=== PATIENT | male | born 1930 | race African-American/Black ===

== ENCOUNTER 2016-06-13 06:38 | Day surgery (SDC) | payer OTHER, BC ==
[2016-06-13 07:18] VITALS: BMI 24.3
[2016-06-13] MEDS ORDERED: LIDOCAINE HCL/PF 1% SDV 5ML VIAL ONE (07:25)
[2016-06-13] MEDS ORDERED: PROPOFOL 20 ML ONE ×3 (07:25)
[2016-06-13 08:19] VITALS: TEMP 97.4
[2016-06-13 08:28] VITALS: PULSE 65
[2016-06-13 09:17] VITALS: BP 132/74
--- NOTE | 2016-06-14 10:11 | PATH ---
Surgical Pathology Report Patient Name: BARBIE BENAVIDEZ [facility]. Rec. #: [id number] /Age/Gender: 1930 (Age: 86) / M Account: [id number] Location: U-ENDOSCOPY Taken: 06/13/2016 Received: 06/13/2016 Reported: 06/14/2016 Physicians: Flaco Foster M.D. Specimen(s) Received A: SIGMOID COLON POLYP B: RECTAL POLYP BIOPSY Clinical History History of colon polyps Colon polyps Final Diagnosis A. COLON, SIGMOID, BIOPSY: TUBULAR ADENOMA. B. RECTUM, BIOPSY: HYPERPLASTIC POLYP. Electronically Signed Dk Lange M.D. Gross Description A. Received in formalin, labeled "sigmoid colon polyp" is a reyes, irregular portion of soft tissue measuring 0.7 cm. in greatest dimension. The specimen is submitted in toto in one cassette. B. Received in formalin, labeled "rectal polyp biopsy" is a reyes, irregular portion of soft tissue measuring 0.3 cm. in greatest dimension. The specimen is submitted in toto in one cassette. 06/13/201606/13/2016
== END 2016-06-13 09:17 | disposition home or self-care (01) ==
LOC: JASU-ENDO 06:38
PROVIDERS: ATTEND Internal Medicine Gastroenterology
PROC: 0DBP8ZX Excision of Rectum, Via Natural or Artificial Opening Endoscopic, Diagnostic (ICD-10-PCS; 2016-06-13)
PROC: 0DBN8ZX Excision of Sigmoid Colon, Via Natural or Artificial Opening Endoscopic, Diagnostic (ICD-10-PCS; principal; 2016-06-13 07:30)
DX: D12.5 Benign neoplasm of sigmoid colon (principal); K62.1 Rectal polyp; K64.8 Other hemorrhoids; K57.30 Diverticulosis of large intestine without perforation or abscess without bleeding; K62.4 Stenosis of anus and rectum; K59.00 Constipation, unspecified
CPT/HCPCS: 88305-TC

== ENCOUNTER 2019-12-27 18:46 | Inpatient (IN) | payer OTHER, BC ==
[2019-12-27 18:56] VITALS: BMI 20.4
--- NOTE | 2019-12-27 19:30 | PDOC ---
History of Present Illness - General Chief Complaint: Pain Stated Complaint: STOMACH PAIN Time Seen by Provider: 12/27/19 19:18 - History of Present Illness Initial Comments: 12/27/19 19:31 89 year old man with a history of COPD, gastroparesis who presents with several weeks of chest pain radiating into the throat worse with lying back. He can't describe the pain but states he feels most consistent with acid. He endorses some shortness of breath but denies any other symptoms. Patient took 2 tylenols at 4pm ROS GENERAL/CONSTITUTIONAL: No fever or chills. No weakness. HEAD, EYES, EARS, NOSE AND THROAT: No change in vision. No ear pain or discharge. No sore throat. CARDIOVASCULAR: N+ chest pain or shortness of breath RESPIRATORY: No cough, wheezing, or hemoptysis. GASTROINTESTINAL: No nausea, vomiting, diarrhea or constipation. GENITOURINARY: No dysuria, frequency, or change in urination. MUSCULOSKELETAL: No joint or muscle swelling or pain. No neck or back pain. SKIN: No rash NEUROLOGIC: No headache, vertigo, loss of consciousness, or change in strength/sensation. ENDOCRINE: No increased thirst. No abnormal weight change HEMATOLOGIC/LYMPHATIC: No anemia, easy bleeding, or history of blood clots. ALLERGIC/IMMUNOLOGIC: No hives or skin allergy. PE GENERAL: Awake, alert, and fully oriented, in no acute distress HEAD: No signs of trauma, normocephalic, atraumatic EYES: EOMI, sclera anicteric, conjunctiva clear ENT: oropharynx clear without exudates. Moist mucosa NECK: Normal ROM, supple LUNGS: No distress, speaks full sentences, crackles at base R> L HEART: Regular rate and rhythm, normal S1 and S2, no murmurs, rubs or gallops, peripheral pulses normal and equal bilaterally. ABDOMEN: Soft, nontender. No guarding, no rebound. No masses EXTREMITIES : Normal inspection, Normal range of motion, no edema. No clubbing or cyanosis. NEUROLOGICAL: Cranial nerves II through XII grossly intact. Normal speech, normal gait, no focal sensorimotor deficits SKIN: Warm, Dry, normal turgor, no rashes or lesions noted Assessment and Plan 89 year old man with a history of COPD, gastroparesis who presents with several weeks of chest pain radiating into the throat worse with lying back. Consider acs vs GERD vs msk - cbc, cmp, trop, ekg, cxr - pepcid maalox labs with elevated trop to 0.15 EKG: nsr at 90bpm, ST depression in v4, v5, v6 Will dose ASA patient reports increasing pain in the jaw, morphine and repeat ekg repeat EKG unchanged Plan for admission Carmen Mann, PGY3 Emergency Medicine Past History - Medical History Allergies/Adverse Reactions: Allergies Allergy/AdvReac Type Severity Reaction Status Date / Time No Known Drug Allergies Allergy Verified 12/27/19 20:04 Home Medications: Ambulatory Orders Tamsulosin HCl [Flomax -] 0.4 mg PO DAILY #0 cap.er.24h 12/06/11 Albuterol Sulfate [Proair Hfa] 8.5 gm IH PRN 12/27/19 Gabapentin [Neurontin] 600 mg PO BID 12/27/19 Umeclidinium Brm/Vilanterol Tr [Anoro Ellipta 62.5-25 Mcg INH] 1 each IH DAILY 12/27/19 Anemia: No Asthma: No Cancer: No Cardiac Disorders: No CVA: No COPD: Yes (emphysema) CHF: No Dementia: No Diabetes: No GI Disorders: Yes (polyps, GI paralysis) Disorders: Yes (hesitancy, BPH) HTN: No Hypercholesterolemia: No Liver Disease: No Seizures: No Thyroid Disease: No Other medical history: Arthritis - Surgical History Abdominal Surgery: No Appendectomy: No Cardiac Surgery: No Cholecystectomy: No Lung Surgery: No Neurologic Surgery: Yes (NECK FUSION) Orthopedic Surgery: No - Psycho-Social/Smoking History Smoking History: Former smoker Have you smoked in the past 12 months: No If you are a former smoker, when did you quit?: 30 y Information on smoking cessation initiated: No - Substance Abuse Hx (Audit-C & DAST Scrn) How often the patient has a drink containing alcohol: Never Score: In Men: 4 or > Positive; In Women: 3 or > Positive: 0 Screen Result (Pos requires Nsg. Audit-10AR): Negative In the last yr the pt used illegal drug/Rx for NonMed reason: No Score: Yes response is considered Positive: 0 Screen Result (Positive result requires Nsg. DAST-10): Negative *Physical Exam - Vital Signs Last Vital Signs Temp Pulse Resp BP Pulse Ox 98.5 F 97 H 19 152/73 99 12/27/19 18:51 12/27/19 18:51 12/27/19 18:51 12/27/19 18:51 12/27/19 18:51 ED Treatment Course - LABORATORY CBC & Chemistry Diagram: 12/29/19 06:42 12/29/19 06:42 Discharge - Discharge Information Problems reviewed: Yes Clinical Impression/Diagnosis: NSTEMI (non-ST elevated myocardial infarction) Disposition: TRANSFER ACUTE CARE/OTHER HOSP - Follow up/Referral - Patient Discharge Instructions - Post Discharge Activity
[2019-12-27] MEDS ORDERED: FAMOTIDINE 20 MG/50 ML IVPB 20 MG/50 ML MG IVPB ONE ×2 (19:31→19:36)
[2019-12-27] MEDS ORDERED: MAG HYDROX/AL HYDROX/SIMETH 30 ML UNIT-DOSE CUP PO ONE (19:31)
[2019-12-27] MEDS ORDERED: MAG HYDROX/AL HYDROX/SIMETH 30 ML UNIT-DOSE CUP ONE (19:36)
[2019-12-27 20:22] LABS: BASO % 0.3 % (0-2.0); EOS % 0.6 % (0-4.5); HEMATOCRIT 37.7 % (35.4-49); HEMOGLOBIN 12.4 GM/dL (11.7-16.9); LYMPH % 12.6 % (8-40); MCH 31.3 pg (25.7-33.7); MEAN CELL VOLUME 94.8 fl (80-96); MEAN PLT VOLUME 7.8 fl (7.5-11.1); MONO % 7.4 % (3.8-10.2); NEUT % 79.1 % (42.8-82.8); PLATELET COUNT 191 K/MM3 (134-434); RBC 3.98 M/mm3 (4.00-5.60); RDW 13.6 % (11.9-15.9)
[2019-12-27 20:48] LABS: ALBUMIN 3.4 g/dl (3.4-5.0); BILIRUBIN,TOTAL 0.5 mg/dL (0.2-1); BLOOD UREA NITROGEN 9.5 mg/dL (7-18); CALCIUM 8.9 mg/dL (8.5-10.1); CREATININE 1.1 mg/dL (0.55-1.3); POTASSIUM 3.7 mmol/L (3.5-5.1)
[2019-12-27] MEDS ORDERED: ACETAMINOPHEN 1000 MG/100 ML VIAL (NON FORMULARY) IVPB ONE (21:00)
[2019-12-27] MEDS ORDERED: ASPIRIN 81 MG CHEWABLE TABLETS PO ONE (21:02)
[2019-12-27] MEDS ORDERED: METOPROLOL TARTRATE 25 MG TABLET (FP) PO ONE (21:02)
[2019-12-27] MEDS ORDERED: morphine CARPU-JECT 4 MG/1 ML DISP.SYRIN IVPUSH ONE ×2 (21:03→23:30)
[2019-12-27] MEDS ORDERED: CLOPIDOGREL BISULFATE 300 MG TABLET PO ONE (21:03)
[2019-12-27] MEDS ORDERED: ROSUVASTATIN CA 20 MG TABLET (FP) PO ONE (21:03)
[2019-12-27] MEDS ORDERED: CLOPIDOGREL BISULFATE 300 MG TABLET ONE (21:12)
[2019-12-27] MEDS ORDERED: METOPROLOL TARTRATE 25 MG TABLET (FP) ONE (21:12)
[2019-12-27] MEDS ORDERED: ASPIRIN 81 MG CHEWABLE TABLETS ONE (21:12)
--- NOTE | 2019-12-27 21:12 | PN ---
Teaching Attending Note Name of Resident: Sudarshan Arizmendi ATTENDING PHYSICIAN STATEMENT I saw and evaluated the patient. I reviewed the resident's note and discussed the case with the resident. I agree with the resident's findings and plan as documented. SUBJECTIVE: Patient is an 89 year old man with a PMH of COPD, BPH, COVID-19 infection (July 2019), Lumbar spinal stenosis, Spondylosis with myelopathy and Gastroparesis who presents to the ER with several weeks of worsening chest pain. As per patient, his chest pain radiates to his throat, is exacerbated when he is laying flat on his back, and notes associated shortness of breath. Patient states his pain is similar to acid reflux symptoms. Patient reports taking 2 Tylenols at 4 pm today . Has lost over 10 lbs since his COVID-19 infection - has had poor oral intake due to loss of taste sensation. Patient denies abdominal pain, headache, palpitations, dizziness, fever, chills, nausea, vomiting, diarrhea, constipation, dysuria, frequency, urgency, melena, hematochezia or hematuria. Denies alcohol, tobacco or illicit drug use. No sick contacts or recent travels. Family history is unremarkable. OBJECTIVE: Alert Vital Signs Period Temp Pulse Resp BP Sys/Pulido Pulse Ox Last 24 Hr 98.5 F 85-97 19-20 152-166/73-93 99-100 HEENT: No Jaundice, eye redness or discharge, PERRLA, EOMI. Normocephalic, atraumatic. External ears are normal and hearing is grossly intact. No nasal discharge. Neck: Supple, nontender. No palpable adenopathy or thyromegaly. No JVD Chest: Good effort. Clear to auscultation and percussion. Heart: Regular. No S3, rub or murmur Abdomen: Not distended, soft, nontender and no HSM. No rebound or guarding. Normal bowel sounds. Ext: Peripheral pulses intact. No leg edema. Skin: Warm and dry. No petechiae, rash or ecchymosis. Neuro: Alert. Oriented x3. CN 2-12 grossly intact. Sensation grossly intact in all four extremities and DTR are symmetric. Psych: Appropriate mood and affect. Good insight. Home Medications Medication Instructions Recorded Tamsulosin HCl [Flomax -] 0.4 mg PO DAILY #0 cap.er.24h 12/06/11 Albuterol Sulfate [Proair Hfa] 8.5 gm IH PRN 12/27/19 Gabapentin [Neurontin] 600 mg PO BID 12/27/19 Umeclidinium Brm/Vilanterol Tr 1 each IH DAILY 12/27/19 [Anoro Ellipta 62.5-25 Mcg INH] Abnormal Lab Results 12/27/19 12/27/19 19:49 19:49 RBC 3.98 L ALT 12 L Troponin I 0.15 H Current Medications Generic Name Dose Route Start Last Admin Trade Name Nabil PRN Reason Stop Dose Admin Enoxaparin Sodium 50 mg 12/27/19 21:15 12/27/19 21:21 Lovenox - SQ 50 mg ONCE LIZ Administration ASSESSMENT AND PLAN: 1. Chest pain/?NSTEMI - CXR shows cardiomegaly, bibasilar atelectasis most marked in the RLL and hilar prominence. First EKG showed NSR at 90/minute, LVH and QTc [address] depression in ?I, II, V4-V6. Changed compared to prior EKG from 2011. Repeat EKG shows ST depression only in V4,V5. Initial troponin is 0.15. ER staff prescribed full dose Lovenox, Plavix, Aspirin 324 mg, Metorpr olol, IV Morphine, Tylenol, Mylanta, Pepcid and Crestor for the patient. Will admit to telemetry, trend troponin, repeat EKG, get ECHO, TSH, carotid doppler, fasting lipids, brain MRI, do speech and swallow evaluation, neurochecks and implement fall/aspiration/seizure precautions. Consult Cardiology. Viral testing for COVID-19 ordered and patient placed on airborne, droplet and contact isolation. Will continue comprehensive care for all of patients comorbid conditions including Duoneb for COPD and Flomax for BPH. 2. Hypertension Will restart suitable outpatient antihypertensive drugs when clinically appropriate. Subsequently, will revise regimen to ensure [id number] excellent BP control. Patient counseled on the injurious effects of uncontrolled hypertension. Nonpharmacologic measures to control hypertension like weight loss, salt restriction and exercise stressed. Importance of adherence to treatment regimen and attainment of normotension emphasized. 3. DVT prophylaxis - On full dose Lovenox for NSTEMI. 4. Advance directives - Full code
[2019-12-27] MEDS ORDERED: ENOXAPARIN NA (PORCINE) 60 MG/0.6 ML DISP.SYRIN SQ ONE (21:13)
[2019-12-27] MEDS ORDERED: morphine SULFATE 4 MG/ML VIAL ONE (21:14)
[2019-12-27] MEDS ORDERED: ENOXAPARIN NA (PORCINE) 60 MG/0.6 ML DISP.SYRIN SQ SCH (21:15)
--- NOTE | 2019-12-27 22:53 | PDOC ---
Documentation entered by Ritu Maria SCRIBE, acting as scribe for Shreya Jurado MD. Shreya Jurado MD: This documentation has been prepared by the jinnyibeCrow Sydney, SCRIBE, under my direction and personally reviewed by me in its entirety. I confirm that the documentation accurately reflects all work, treatment, procedures, and medical decision making performed by me. Attending Attestation - Resident Resident Name: Carmen Mann - ED Attending Attestation I have performed the following: I have examined & evaluated the patient, The case was reviewed & discussed with the resident, I agree w/resident's findings & plan, Exceptions are as noted - HPI HPI: 12/27/19 20:31 Patient is a 89 male with a significant past medical history of COPD, gastroparesis who presents to the ED with several weeks of worsening chest pain. As per patient, his chest pain radiates to his throat, is exacerbated when he is laying flat on his back, and notes associated shortness of breath. Patient states his pain is similar to acid reflux symptoms. Patient reports taking 2 Tylenols at 4 pm today. Denies headache, fever, chills, nausea, vomiting, diarrhea, or urinary changes. Allergies: NKDA PCP: Dr. Singh - Physicial Exam PE: 12/27/19 22:41 Agree with resident exam HEENT normal skin normal Normal heart and lungs; pt has a 3rd nipple on the right side of chest Abd soft NT ND no flank pain normal neuro exam no ext edema - Medical Decision Making 12/27/19 21:08 Pt has a positive trop with an EKG that shows new LVH with strain and he will be admitted to tele and anticoagulated, etc Cards will follow with him tomorrow. Heart Score/ECG Review - ECG Intrepretation Rhythm: Regular Rhythm - [place]: Left [place] Deviation - P and [place] Prominent R with upright T in V1 (true posterior TN): No - QRS Poor R Wave Progression: No Q Wave Present: No - ST and T Early Repolarization: No Non Specific ST-T Wave changes: Yes ST Depression Suggest: Ischemia Flattened T Waves: No Prolonged Q-T Interval: No - ECG Impressions Normal ECG: Yes Non-specific ST Elevation: No Ischemic Changes: Yes (LATERAL ASPECT) Bradycardia: No Torsades melanie Pointes: No WPW: No Discharge - Discharge Information Problems reviewed: Yes Clinical Impression/Diagnosis: NSTEMI (non-ST elevated myocardial infarction) - Follow up/Referral - Patient Discharge Instructions - Post Discharge Activity
[2019-12-27] MEDS ORDERED: MORPHINE SULFATE 2 MG/ML VIAL ONE (23:42)
[2019-12-28] MEDS ORDERED: ALBUTEROL SO4 HFA INHALER IH SCH (01:00)
--- NOTE | 2019-12-28 01:09 | HP ---
CHIEF COMPLAINT: Chest pain radiating to the jaw for several weeks gradually becoming more frequent and worse PCP: Dr. Lorena Singh HISTORY OF PRESENT ILLNESS: 89 year old male patient with past medical history that includes COPD, gastroparesis diagnosed 3 years ago per patient, COVID in July, BPH, and N europathy, who presented to the ED with chest pain radiating to the jaw for several weeks. It has been gradually becoming more frequent and is now constant pain both during the day and at night. The patient reports that exertion does not bring on the pain or make it worse. He reports the symptoms feel the same as when he gets acid reflux. He tried taking 2 Tylenol with minimal relief. The pain is worse when he lies down. He also has some shortness of breath which he attributes to his COPD. The patient also has a mild headache. He has lost at least 10 pounds since he had COVID in July, but he attributes it to lack of appetite due to loss of taste, which he thinks the COVID caused. ER course was notable for: (1) ECG (2) Troponins (3) PAST MEDICAL HISTORY: COPD, gastroparesis for 3 years, COVID in July, BPH, Neuropathy PAST SURGICAL HISTORY: Left carpal tunnel, lumbar spine surgery, C4 neck surgery, right carpal tunnel surgery, leg vein stripping surgery Social History: Smoking: denies Alcohol: denies Drugs: denies Allergies No Known Drug Allergies Allergy (Verified 12/27/19 20:04) HOME MEDICATIONS: Home Medications Medication Instructions Recorded Tamsulosin HCl [Flomax -] 0.4 mg PO DAILY #0 cap.er.24h 12/06/11 Albuterol Sulfate [Proair Hfa] 8.5 gm IH PRN 12/27/19 Gabapentin [Neurontin] 600 mg PO BID 12/27/19 Umeclidinium Brm/Vilanterol Tr 1 each IH DAILY 12/27/19 [Anoro Ellipta 62.5-25 Mcg INH] REVIEW OF SYSTEMS CONSTITUTIONAL: loss of appetite Absent: fever, chills CARDIOVASCULAR: chest pain, jaw pain Absent: RESPIRATORY: shortness of breath Absent: GASTROINTESTINAL: Absent: nausea, vomiting, diarrhea, constipation GENITOURINARY: Absent: urinary changes ENDOCRINE: weight loss Absent: NEUROLOGIC: headache Absent: PHYSICAL EXAMINATION Vital Signs - 24 hr 12/27/19 12/27/19 12/27/19 18:51 21:04 21:19 Temperature 98.5 F Pulse Rate 97 H Pulse Rate [ 85 Left Radial] Respiratory 19 20 Rate Blood Pressure 152/73 Blood Pressure 166/93 [Right Arm] O2 Sat by Pulse 99 100 100 Oximetry (%) 12/27/19 23:45 Temperature Pulse Rate Pulse Rate [ 78 Left Radial] Respiratory 18 Rate Blood Pressure Blood Pressure 159/84 [Right Arm] O2 Sat by Pulse 100 Oximetry (%) GENERAL: Awake, alert, and fully oriented, in no acute distress. HEAD: Normal with no signs of trauma. EYES: Extraocular movements intact. No lid lag. EARS, NOSE, THROAT: Ears normal, nares patent, oropharynx clear without exudates. Moist mucous membranes. NECK: Normal range of motion, supple without lymphadenopathy, JVD, or masses. LUNGS: Breath sounds equal, clear to auscultation bilaterally. No wheezes, and no crackles. No accessory muscle use. HEART: Regular rate and rhythm, normal S1 and S2 without murmur, rub or gallop. ABDOMEN: Soft, nontender, not distended, normoactive bowel sounds, no guarding, no rebound, no masses. MUSCULOSKELETAL: Normal range of motion at all joints. No bony deformities or tenderness. UPPER EXTREMITIES: 2+ pulses, warm, well-perfused. No cyanosis. No clubbing. No peripheral edema. LOWER EXTREMITIES: 2+ pulses, warm, well-perfused. No calf tenderness. No peripheral edema. NEUROLOGICAL: Normal speech. Normal gait. PSYCHIATRIC: Cooperative. Good eye contact. Appropriate mood and affect. SKIN: Warm, dry, normal turgor, no rashes or lesions noted, normal capillary refill. Laboratory Results - last 24 hr 12/27/19 12/27/19 12/27/19 19:49 19:49 22:55 WBC 7.0 RBC 3.98 L Hgb 12.4 Hct 37.7 MCV 94.8 MCH 31.3 MCHC 33.0 RDW 13.6 Plt Count 191 MPV 7.8 Absolute Neuts (auto) 5.5 Neutrophils % 79.1 D Lymphocytes % 12.6 D Monocytes % 7.4 Eosinophils % 0.6 Basophils % 0.3 Nucleated RBC % 0 Sodium 140 Potassium 3.7 Chloride 102 Carbon Dioxide 30 Anion Gap 8 BUN 9.5 Creatinine 1.1 Est GFR (CKD-EPI)AfAm 69.59 Est GFR (CKD-EPI)NonAf 60.04 Random Glucose 92 Calcium 8.9 Total Bilirubin 0.5 AST 15 ALT 12 L Alkaline Phosphatase 50 Troponin I 0.15 H 1.04 H* Total Protein 7.0 Albumin 3.4 Lipase 133 ASSESSMENT/PLAN: 89 year old male patient with past medical history that includes COPD, gastroparesis diagnosed 3 years ago per patient, COVID in July, BPH, and Neuropathy, who presented to the ED with chest pain radiating to the jaw for several weeks. 1. NSTEMI - Troponins elevated - Chest pain radiating to the jaw - No ST elevations of ECG - The patient received aspirin, metoprolol, morphine, statin, lovenox - ECHO - Serial Troponins - Cardio consulted - ASA - Fasting lipid panel in morning (patient NPO) 2. BPH - Home med of Tamsulosin 3. COPD - Home med of Anoro Ellipta resumed. #FEN - Monitoring Electrolytes, NPO for fasting lipid panel in morning DVT PPx - Lovenox SQ Family Medical History Family History: Denies Other Family History: The patient says that he is unaware of what medical conditions are in his family's history. Visit type - Medication Review Med list reviewed for High Risk Meds patients 65 and older: Yes - Emergency Visit Emergency Visit: Yes ED Registration Date: 12/28/19 Care time: The patient presented to the Emergency Department on the above date and was hospitalized for further evaluation of their emergent condition. - New Patient This patient is new to me today: Yes Date on this admission: 12/28/19 - Critical Care Critical Care patient: No ATTENDING PHYSICIAN STATEMENT I saw and evaluated the patient. I reviewed the resident's note and discussed the case with the resident. I agree with the resident's findings and plan as documented. SUBJECTIVE: OBJECTIVE: ASSESSMENT AND PLAN:
[2019-12-28] MEDS ORDERED: ALBUTEROL SO4 HFA INHALER IH PRN (07:04)
[2019-12-28] MEDS ORDERED: TAMSULOSIN HCL 0.4 MG CAP ONE (08:42)
[2019-12-28] MEDS ORDERED: ASPIRIN COATED 81 MG TABLET.EC ONE (08:42)
[2019-12-28] MEDS ORDERED: GABAPENTIN 100 MG CAPSULE ONE (08:43)
[2019-12-28] MEDS ORDERED: ENOXAPARIN NA (PORCINE) 40 MG/0.4 ML DISP.SYRIN SQ ONE (08:43)
[2019-12-28] MEDS: TAMSULOSIN HCL 0.4 MG CAP PO SCH (09:47)
[2019-12-28] MEDS: ASPIRIN COATED 81 MG TABLET.EC PO SCH (09:47)
[2019-12-28] MEDS: GABAPENTIN 300 MG CAPSULE PO SCH ×2 (09:48→21:07)
[2019-12-28] MEDS ORDERED: ENOXAPARIN NA (PORCINE) 40 MG/0.4 ML DISP.SYRIN SQ SCH (10:00)
[2019-12-28] MEDS ORDERED: UMECLIDINIUM/VILANTEROL (ANORO) 62.5/25 MCG INHALER IH SCH (10:00)
--- NOTE | 2019-12-28 11:31 | CON.CARD ---
Consult Consult Specialty:: Cardiology Referred by:: Hospitalist Medicine Reason for Consultation:: [place]/NSTEMI - History of Present Illness Chief Complaint: Chest pain History of Present Illness: Patient is an 89 year old man with a PMH of COPD, BPH, COVID-19 infection (July 2019), Lumbar spinal stenosis, Spondylosis with myelopathy and Gastroparesis who presents to the ER with several weeks of worsening chest pain radiating to the jaw. His chest pain radiates to his throat, is exacerbated when he is laying flat on his back, and notes associated shortness of breath. Patient states his pain is similar to acid reflux symptoms. It has been gradually becoming more frequent and is now constant pain both during the day and at night. The patient reports that exertion does not bring on the pain or make it worse. Patient repor ts taking 2 Tylenols at 4 pm today. Has lost over 10 lbs since his COVID-19 infection - has had poor oral intake due to loss of taste sensation. Patient denies palpitations, near or true syncope, orthopnea, PND or LE edema. Evolving lateral TWI and + troponins noted, currently chest pain and dysnpnea free. Allergies: NKDA PCP: Dr. Singh - History Source History Provided By: Patient Limitations to Obtaining History: No Limitations - Alcohol/Substance Use Hx Alcohol Use: Yes (occas) - Smoking History Smoking history: Former smoker Have you smoked in the past 12 months: No If you are a former smoker, when did you quit?: 30 y Home Medications - Allergies Allergies/Adverse Reactions: Allergies Allergy/AdvReac Type Severity Reaction Status Date / Time No Known Drug Allergies Allergy Verified 12/27/19 20:04 - Home Medications Home Medications: Ambulatory Orders Tamsulosin HCl [Flomax -] 0.4 mg PO DAILY #0 cap.er.24h 12/06/11 Albuterol Sulfate [Proair Hfa] 8.5 gm IH PRN 12/27/19 Gabapentin [Neurontin] 600 mg PO BID 12/27/19 Umeclidinium Brm/Vilanterol Tr [Anoro Ellipta 62.5-25 Mcg INH] 1 each IH DAILY 12/27/19 Family Medical History Other Family History: The patient says that he is unaware of what medical conditions are in his family's history. Review of Systems - Review of Systems Cardiovascular: reports: Chest Pain Respiratory: reports: SOB Vital Signs: Vital Signs Temperature 97.4 F L 12/28/19 10:03 Pulse Rate 75 12/28/19 10:03 Respiratory Rate 18 12/28/19 10:03 Blood Pressure 140/77 12/28/19 10:03 O2 Sat by Pulse Oximetry (%) 98 12/28/19 10:03 Constitutional: Yes: No Distress, Calm, Thin Neck: Yes: Supple Respiratory: Yes: Regular, CTA Bilaterally Gastrointestinal: Yes: Normal Bowel Sounds, Soft Cardiovascular: Yes: Regular Rate and Rhythm JVD: No Carotid Bruit: No Heart Sounds: Yes: S1, S2 Edema: No - Other Data Labs, Other Data: CBC, BMP 12/27/19 19:49 12/27/19 19:49 Troponin, BNP 12/27/19 12/27/19 12/28/19 19:49 22:55 09:36 Troponin I 0.15 H 1.04 H* 5.35 H* Troponin, BNP 12/27/19 12/27/19 12/28/19 19:49 22:55 09:36 Troponin I 0.15 H 1.04 H* 5.35 H* NSR LVH with evolving lateral TWI Echo: Pending Ejection Fraction %: LVEF > or = 40 % Imaging - Results Chest X-ray: Report Reviewed ([place] MARIE) Problem List - Problems (1) NSTEMI (non-ST elevated myocardial infarction) Code(s): I21.4 - NON-ST ELEVATION (NSTEMI) MYOCARDIAL INFARCTION (2) Coronary artery disease Code(s): I25.10 - ATHSCL HEART DISEASE OF [place] CORONARY ARTERY W/O ANG PCTRS Qualifiers: Coronary Disease-Associated Artery/Lesion type: [place] artery [place] vs. transplanted heart: [place] heart Associated angina: with unstable angina Qualified Code(s): I25.110 - Atherosclerotic heart disease of [place] coronary artery with unstable angina pectoris (3) COPD (chronic obstructive pulmonary disease) Code(s): J44.9 - CHRONIC OBSTRUCTIVE PULMONARY DISEASE, UNSPECIFIED Qualifiers: COPD type: unspecified COPD Qualified Code(s): J44.9 - Chronic obstructive pulmonary disease, unspecified (4) BPH (benign prostatic hyperplasia) Code(s): N40.0 - BENIGN PROSTATIC HYPERPLASIA WITHOUT LOWER URINRY TRACT SYMP Qualifiers: Lower urinary tract symptom presence: symptoms absent Qualified Code(s): N40.0 - Benign prostatic hyperplasia without lower urinary tract symptoms Assessment/Plan Carotid US: 80-99% SANDEE stenosis 1. CAD with [place]/NSTEMI 2. COPD 3. BPH P:1. Cycle enzyme to document peak, check TSH, lipid panel Ha1c, echo to assess ventricular and valve fxn 2. ASA 81 qd, Plavix 75 qd, Lipitor 80 qd, Toprol XL 25 qd, Lovenox with uptitration as tolerated 3. 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 Joey Weems 4. Continue Cynthia Mack MDI, tolerating Toprol w/o bronchospasm 5. Thank you for consultative opportunity
[2019-12-28] MEDS ORDERED: metoPROLOL SUCCINATE 25 MG TAB.SR.24H (FP) ONE (11:42)
[2019-12-28] MEDS ORDERED: ENOXAPARIN NA (PORCINE) 80 MG/0.8 ML DISP.SYRIN SQ ONE (11:42)
[2019-12-28] MEDS ORDERED: CLOPIDOGREL BISULFATE 75 MG TABLET (FP) ONE (11:42)
[2019-12-28] MEDS: CLOPIDOGREL BISULFATE 75 MG TABLET (FP) PO SCH (11:47)
[2019-12-28] MEDS: ENOXAPARIN NA (PORCINE) 60 MG/0.6 ML DISP.SYRIN SQ SCH ×2 (11:47→21:07)
[2019-12-28] MEDS: metoPROLOL SUCCINATE 25 MG TAB.SR.24H (FP) PO SCH (11:47)
--- NOTE | 2019-12-28 15:18 | PN ---
Progress Note, Physician History of Present Illness: seen and examined at bedside with present. EKGs reviewed. No evidence of STEMI. Evolving T wave inversion on EKG from this AM. Troponin increased to 5.3 this AM. Symptom free at this time. Denies nausea vomiting fever chills chest pain or SOB at this time. States he has had symptoms for a couple of weeks but the intensity of the pain is what made him come in last night. ROS negative except as per above. - Current Medication List Current Medications: Active Medications Albuterol Sulfate (Ventolin Hfa Inhaler -) 2 puff IH Q4H PRN PRN Reason: WHEEZING Aspirin (Ecotrin -) 81 mg PO DAILY [facility] Last Admin: 12/28/19 09:47 Dose: 81 mg Documented by: Atorvastatin Calcium (Lipitor -) 80 mg PO HS [facility] Clopidogrel Bisulfate (Plavix -) 75 mg PO DAILY [facility] Last Admin: 12/28/19 11:47 Dose: 75 mg Documented by: Enoxaparin Sodium (Lovenox -) 55 mg SQ BID [facility] Last Admin: 12/28/19 11:47 Dose: 55 mg Documented by: Gabapentin (Neurontin -) 600 mg PO BID [facility] Last Admin: 12/28/19 09:48 Dose: 600 mg Documented by: Metoprolol Succinate (Toprol Xl -) 25 mg PO DAILY [facility] Last Admin: 12/28/19 11:47 Dose: 25 mg Documented by: Tamsulosin HCl (Flomax -) 0.4 mg PO DAILY@0830 [facility] Last Admin: 12/28/19 09:47 Dose: 0.4 mg Documented by: Umeclidinium/Vilanterol (Anoro Ellipta 62.5-25 Mcg Inh) 1 puff IH DAILY [facility] Last Admin: 12/28/19 10:49 Dose: Not Given Documented by: - Objective Vital Signs: Vital Signs Temperature 98.2 F 12/28/19 14:39 Pulse Rate 78 12/28/19 14:39 Respiratory Rate 18 12/28/19 10:03 Blood Pressure 133/73 12/28/19 14:39 O2 Sat by Pulse Oximetry (%) 98 12/28/19 14:39 Constitutional: Yes: No Distress, Calm, Thin Eyes: Yes: Conjunctiva Clear HENT: Yes: Atraumatic Neck: Yes: Supple Cardiovascular: Yes: Regular Rate and Rhythm Respiratory: Yes: CTA Bilaterally Gastrointestinal: Yes: Soft Extremities: Yes: WNL. No: Calf Tenderness Edema: No Neurological: Yes: Alert, Oriented, Cran Nerves II-XII Intact Psychiatric: Yes: Alert, Oriented Labs: CBC, BMP 12/27/19 19:49 12/27/19 19:49 - ....Imaging Chest X-ray: Report Reviewed, Image Reviewed Impression/Plan Impression/Plan: 89M with history of COPD BPH presents with NSTEMI. NSTEMI: Troponin now 5.3 and trending upwards from admission. Continue to trend to document peak. EKG PRN chest pain. Discussed lifestyle modifications statin aspirin plavix Toprol XL Lovenox therapeutic dosing extensive discussion about cardiac cath vs medical therapy. Patient and are leaning towards cath. cardiology consult noted and appreciated discussed with Dr. Lynch in person. Right Carotid artery stenosis 80-99% vascular consult BPH Flomax COPD not in exacerbation continue bronchodilators More than half my visit discussing R/B/A of medical therapy vs cath. and patient had many wuaestions and all answered and addressed. Emotional support given. Visit type - Emergency Visit Emergency Visit: Yes ED Registration Date: 12/28/19 Care time: The patient presented to the Emergency Department on the above date and was hospitalized for further evaluation of their emergent condition. - New Patient This patient is new to me today: Yes Date on this admission: 12/28/19 - Critical Care Critical Care patient: No - Medication Review Med list reviewed for High Risk Meds patients 65 and older: Yes
[2019-12-28] MEDS ORDERED: ATORVASTATIN CA 80 MG TABLET (FP) PO SCH (22:00)
[2019-12-29 07:39] LABS: BASO % 0.3 % (0-2.0); EOS % 3.2 % (0-4.5); HEMATOCRIT 37.8 % (35.4-49); HEMOGLOBIN 12.5 GM/dL (11.7-16.9); LYMPH % 27.5 % (8-40); MCH 30.9 pg (25.7-33.7); MEAN CELL VOLUME 93.6 fl (80-96); MEAN PLT VOLUME 7.6 fl (7.5-11.1); MONO % 10.9 % (3.8-10.2); NEUT % 58.1 % (42.8-82.8); PLATELET COUNT 184 K/MM3 (134-434); RBC 4.04 M/mm3 (4.00-5.60); RDW 13.5 % (11.9-15.9); WHITE BLOOD COUNT 4.9 K/mm3 (4.0-10.0)
[2019-12-29 07:49] LABS: ALBUMIN 3.2 g/dl (3.4-5.0); BILIRUBIN,TOTAL 0.5 mg/dL (0.2-1); BLOOD UREA NITROGEN 11.4 mg/dL (7-18); CALCIUM 8.3 mg/dL (8.5-10.1); CREATININE 0.9 mg/dL (0.55-1.3); POTASSIUM 3.7 mmol/L (3.5-5.1); TOT PROT 6.2 g/dl (6.4-8.2)
[2019-12-29] MEDS ORDERED: PT OWN MED DRAWER 7, Y5N ONE (09:24)
[2019-12-29] MEDS: CLOPIDOGREL BISULFATE 75 MG TABLET (FP) PO SCH (09:27)
[2019-12-29] MEDS: ENOXAPARIN NA (PORCINE) 60 MG/0.6 ML DISP.SYRIN SQ SCH (09:27)
[2019-12-29] MEDS: GABAPENTIN 300 MG CAPSULE PO SCH (09:28)
[2019-12-29] MEDS: metoPROLOL SUCCINATE 25 MG TAB.SR.24H (FP) PO SCH (09:28)
[2019-12-29] MEDS: TAMSULOSIN HCL 0.4 MG CAP PO SCH (09:28)
[2019-12-29] MEDS: ASPIRIN COATED 81 MG TABLET.EC PO SCH (09:29)
--- NOTE | 2019-12-29 09:51 | PN ---
Progress Note, Physician Chief Complaint: Events noted Not in distress History of Present Illness: Patient was seen and examined. Awake and alert. Chart was reviewed Denies chest pain, SOB or palpitations - Current Medication List Current Medications: Active Medications Albuterol Sulfate (Ventolin Hfa Inhaler -) 2 puff IH Q4H PRN PRN Reason: WHEEZING Aspirin (Ecotrin -) 81 mg PO DAILY [facility] Last Admin: 12/29/19 09:29 Dose: 81 mg Documented by: Atorvastatin Calcium (Lipitor -) 80 mg PO HS [facility] Last Admin: 12/28/19 21:07 Dose: 80 mg Documented by: Clopidogrel Bisulfate (Plavix -) 75 mg PO DAILY [facility] Last Admin: 12/29/19 09:27 Dose: 75 mg Documented by: Enoxaparin Sodium (Lovenox -) 55 mg SQ BID [facility] Last Admin: 12/29/19 09:27 Dose: 55 mg Documented by: Gabapentin (Neurontin -) 600 mg PO BID [facility] Last Admin: 12/29/19 09:28 Dose: 600 mg Documented by: Metoprolol Succinate (Toprol Xl -) 25 mg PO DAILY [facility] Last Admin: 12/29/19 09:28 Dose: 25 mg Documented by: Tamsulosin HCl (Flomax -) 0.4 mg PO DAILY@0830 [facility] Last Admin: 12/29/19 09:28 Dose: 0.4 mg Documented by: Umeclidinium/Vilanterol (Anoro Ellipta 62.5-25 Mcg Inh) 1 puff IH DAILY [facility] Last Admin: 12/28/19 10:49 Dose: Not Given Documented by: - Objective Vital Signs: Vital Signs Temperature 97.7 F 12/29/19 05:52 Pulse Rate 70 12/29/19 05:52 Respiratory Rate 20 12/29/19 05:52 Blood Pressure 126/70 12/29/19 05:52 O2 Sat by Pulse Oximetry (%) 100 12/29/19 05:52 Eyes: Yes: PERRL HENT: Yes: Atraumatic Neck: Yes: Supple Cardiovascular: Yes: Regular Rate and Rhythm, S1, S2 Respiratory: Yes: CTA Bilaterally Gastrointestinal: Yes: Normal Bowel Sounds, Soft. No: Tenderness Edema: No Additional Findings/Remarks: - Review of Systems Constitutional: denies: Chills, Fever Cardiovascular: (+) Chest Pain, denies: Palpitations, Shortness of Breath Respiratory: denies: Cough, Hemoptysis, Orthopnea, PND, SOB, SOB on Exertion Gastrointestinal: denies: Abdominal Pain, Constipation, Diarrhea, Melena, Nausea, Rectal Bleeding, Vomiting Genitourinary: denies Hematuria Musculoskeletal: denies: Back Pain, Joint Pain Neurological: denies: Dizziness, Headache, Seizure, Syncope Labs: CBC, BMP 12/29/19 06:42 12/29/19 06:42 Problem List - Problems (1) COPD (chronic obstructive pulmonary disease) Code(s): J44.9 - CHRONIC OBSTRUCTIVE PULMONARY DISEASE, UNSPECIFIED Qualifiers: COPD type: unspecified COPD Qualified Code(s): J44.9 - Chronic obstructive pulmonary disease, unspecified (2) Coronary artery disease Code(s): I25.10 - ATHSCL HEART DISEASE OF [place] CORONARY ARTERY W/O ANG PCTRS Qualifiers: Coronary Disease-Associated Artery/Lesion type: [place] artery [place] vs. transplanted heart: [place] heart Associated angina: with unstable angina Qualified Code(s): I25.110 - Atherosclerotic heart disease of [place] coronary artery with unstable angina pectoris (3) Hyperlipemia Code(s): E78.5 - HYPERLIPIDEMIA, UNSPECIFIED Qualifiers: Hyperlipidemia type: pure hypercholesterolemia Qualified Code(s): E78.00 - Pure hypercholesterolemia, unspecified; E78.0 - Pure hypercholesterolemia (4) NSTEMI (non-ST elevated myocardial infarction) Code(s): I21.4 - NON-ST ELEVATION (NSTEMI) MYOCARDIAL INFARCTION Assessment/Plan 1. CAD with [place]/NSTEMI 2. COPD 3. BPH PLAN: 1. Trend troponin (Peaked at 8.18 now 6.94) 2. Echocardiography to assess LV/RV and valvular function 3. ASA 81 mg QD, Plavix 75 mg QD, Lipitor 80 mg QD, Toprol XL 25 mg QD and Lovenox with uptitration as tolerated 4. Transfer to [facility] for cardiac catheterization today. Risks/benefits discussed Further plans are to follow Erasmo Ibarra MD, [facility]
--- NOTE | 2019-12-29 10:23 | DS ---
Physical Exam: SUBJECTIVE: Patient seen and examined. he denies chest pain. He agrees to be transferred to [place] cardiac cath. OBJECTIVE: TRANSFER TO [facility] - [place] DIAGNOSIS: NSTEMI cardiac montior: sinus tach 106 ----- Patient is an 89 year old male patient with past medical history that includes COPD, gastroparesis diagnosed 3 years ago per patient, COVID in July, BPH, and Neuropathy, who presented to the ED with chest pain radiating to the jaw for several weeks. Patient was found to have elevated troponins and is being transferred to [place] cardiac cath today. Vital Signs Period Temp Pulse Resp BP Sys/Pulido Pulse Ox Last 24 Hr 97.5 F-98.2 F 68-79 18-20 109-133/63-80 95-100 PHYSICAL EXAM GENERAL: The patient is awake, alert, and fully oriented, in no acute distress. HEAD: Normal with no signs of trauma. EYES: PERRL, extraocular movements intact, sclera anicteric, conjunctiva clear. ENT: Ears normal, nares patent, oropharynx clear without exudates, moist mucous membranes. NECK: Trachea midline, full range of motion, supple. LUNGS: Breath sounds equal, clear to auscultation bilaterally, no wheezes, no crackles, no accessory muscle use. HEART: Regular rate and rhythm ABDOMEN: Soft, nontender, nondistended, normoactive bowel sounds, no guarding, no rebound NEUROLOGICAL: Cranial nerves II through XII grossly intact. Normal speech, gait not observed. PSYCH: Normal mood, normal affect. SKIN: Warm, dry, normal turgor, no rashes or lesions noted. LABS Laboratory Results - last 24 hr 12/28/19 12/28/19 12/28/19 09:36 14:05 14:40 WBC RBC Hgb Hct MCV MCH MCHC RDW Plt Count MPV Absolute Neuts (auto) Neutrophils % Lymphocytes % Monocytes % Eosinophils % Basophils % Nucleated RBC % Sodium Potassium Chloride Carbon Dioxide Anion Gap BUN Creatinine Est GFR (CKD-EPI)AfAm Est GFR (CKD-EPI)NonAf Random Glucose Hemoglobin A1c % 5.3 Calcium Magnesium Total Bilirubin AST ALT Alkaline Phosphatase Creatine Kinase 493 H Creatine Kinase Index 7.8 H CK-MB (CK-2) 38.7 H Troponin I 5.35 H* 7.16 H* Total Protein Albumin Triglycerides 72 Cholesterol 267 H Total LDL Cholesterol 188 H HDL Cholesterol 69 H 12/29/19 12/29/19 12/29/19 01:00 06:42 06:42 WBC 4.9 RBC 4.04 Hgb 12.5 Hct 37.8 MCV 93.6 MCH 30.9 MCHC 33.0 RDW 13.5 Plt Count 184 MPV 7.6 Absolute Neuts (auto) 2.9 Neutrophils % 58.1 D Lymphocytes % 27.5 D Monocytes % 10.9 H Eosinophils % 3.2 D Basophils % 0.3 Nucleated RBC % 0 Sodium 141 Potassium 3.7 Chloride 104 Carbon Dioxide 28 Anion Gap 8 BUN 11.4 Creatinine 0.9 Est GFR (CKD-EPI)AfAm 88.69 Est GFR (CKD-EPI)NonAf 76.52 Random Glucose 73 L Hemoglobin A1c % Calcium 8.3 L Magnesium 2.0 Total Bilirubin 0.5 AST 36 ALT 14 Alkaline Phosphatase 40 L Creatine Kinase Creatine Kinase Index CK-MB (CK-2) Troponin I 8.18 H* Total Protein 6.2 L Albumin 3.2 L Triglycerides Cholesterol Total LDL Cholesterol HDL Cholesterol 12/29/19 06:42 WBC RBC Hgb Hct MCV MCH MCHC RDW Plt Count MPV Absolute Neuts (auto) Neutrophils % Lymphocytes % Monocytes % Eosinophils % Basophils % Nucleated RBC % Sodium Potassium Chloride Carbon Dioxide Anion Gap BUN Creatinine Est GFR (CKD-EPI)AfAm Est GFR (CKD-EPI)NonAf Random Glucose Hemoglobin A1c % Calcium Magnesium Total Bilirubin AST ALT Alkaline Phosphatase Creatine Kinase Creatine Kinase Index CK-MB (CK-2) Troponin I 6.94 H* Total Protein Albumin Triglycerides Cholesterol Total LDL Cholesterol HDL Cholesterol HOSPITAL COURSE: Date of Admission:12/28/19 Date of Discharge: 12/29/19 Minutes to complete discharge: 60 Discharge Summary Problems reviewed: Yes Reason For Visit: ELEVATED TROPONIN LEVEL/CHEST PAIN Current Active Problems BPH (benign prostatic hyperplasia) (Acute) COPD (chronic obstructive pulmonary disease) (Acute) Coronary artery disease (Acute) NSTEMI (non-ST elevated myocardial infarction) (Acute) - Instructions Referrals: Lorena Singh MD [Primary Care Provider] - - Home Medications Comprehensive Discharge Medication List: Ambulatory Orders Tamsulosin HCl [Flomax -] 0.4 mg PO DAILY #0 cap.er.24h 12/06/11 Albuterol Sulfate [Proair Hfa] 8.5 gm IH PRN 12/27/19 Gabapentin [Neurontin] 600 mg PO BID 12/27/19 Umeclidinium Brm/Vilanterol Tr [Anoro Ellipta 62.5-25 Mcg INH] 1 each IH DAILY 12/27/19 Problem List - Problems (1) BPH (benign prostatic hyperplasia) Code(s): N40.0 - BENIGN PROSTATIC HYPERPLASIA WITHOUT LOWER URINRY TRACT SYMP Qualifiers: Lower urinary tract symptom presence: symptoms absent Qualified Code(s): N40.0 - Benign prostatic hyperplasia without lower urinary tract symptoms (2) COPD (chronic obstructive pulmonary disease) Code(s): J44.9 - CHRONIC OBSTRUCTIVE PULMONARY DISEASE, UNSPECIFIED Qualifiers: COPD type: unspecified COPD Qualified Code(s): J44.9 - Chronic obstructive pulmonary disease, unspecified (3) Coronary artery disease Code(s): I25.10 - ATHSCL HEART DISEASE OF [place] CORONARY ARTERY W/O ANG PCTRS Qualifiers: Coronary Disease-Associated Artery/Lesion type: [place] artery [place] vs. transplanted heart: [place] heart Associated angina: with unstable angina Qualified Code(s): I25.110 - Atherosclerotic heart disease of [place] coronary artery with unstable angina pectoris (4) NSTEMI (non-ST elevated myocardial infarction) Code(s): I21.4 - NON-ST ELEVATION (NSTEMI) MYOCARDIAL INFARCTION (5) Hyperlipemia Code(s): E78.5 - HYPERLIPIDEMIA, UNSPECIFIED Qualifiers: Hyperlipidemia type: pure hypercholesterolemia Qualified Code(s): E78.00 - Pure hypercholesterolemia, unspecified; E78.0 - Pure hypercholesterolemia This patient is new to me today: Yes Date on this admission: 12/29/19 Emergency Visit: Yes ED Registration Date: 12/28/19 Care time: The patient presented to the Emergency Department on the above date and was hospitalized for further evaluation of their emergent condition. Critical Care patient: No - Discharge Referral Referred to [facility] Med P.C.: No
--- NOTE | 2019-12-29 10:39 | PN ---
Progress Note (short form) - Note Progress Note: Vascular Surgery Patient is an 89 year old male patient with past medical history that includes COPD, gastroparesis diagnosed 3 years ago per patient, COVID in July, BPH, and Neuropathy, who presented to the ED with chest pain radiating to the jaw for several weeks. Patient was found to have elevated troponins and is being transferred to [place] cardiac cath today. Carotid doppler 12/28/19: extensive atherosclerotic disease of right internal carotid artery with 80-99% occlusion. Given the patient findings and cardiac status, any intervention for carotid artery stenosis should be done in tertiary facility. Evaluation and plan discussed with Dr Allen
[2019-12-29 12:27] VITALS: BP 130/64; PULSE 63; TEMP 98.2
--- NOTE | 2019-12-29 14:54 | ECHO ---
Name: BARBIE BENAVIDEZ Exam:Adult Echocardiogram Study Date: 12/29/2019 11:26 AM Age: 89 yrs Reason For Study: LV Function Height: 64 in Weight: 119 lb BSA: 1.6 m2 MMode/2D Measurements & Calculations IVSd: 1.3 cm Ao root diam: 2.8 cm LVIDd: 3.3 cm LVIDs: 2.5 cm LVPWd: 1.0 cm EDV(Teich): 44.3 ml LVOT diam: 2.0 cm ESV(Teich): 21.9 ml LAV (MOD-bp): 30.9 ml Doppler Measurements & Calculations MV E max chris: 69.7 cm/sec Ao V2 max: 188.5 cm/sec MV A max chris: 114.3 cm/sec Ao max P.2 mmHg MV E/A: 0.61 Ao V2 mean: 126.6 cm/sec MV dec time: 0.19 sec Ao mean P.3 mmHg Ao V2 VTI: 39.7 cm AI P1/2t: 726.2 msec MICHAEL(V,D): 1.2 cm2 AI max chris: 355.6 cm/sec LV V1 max P.1 mmHg AI max P.6 mmHg LV V1 max: 72.7 cm/sec AI dec slope: 143.4 cm/sec2 TR max chris: 213.1 cm/sec Med Peak E' Chris: 2.8 cm/sec TR max P.2 mmHg Med E/e': 24.6 Lat Peak E' Chris: 6.4 cm/sec Lat E/e': 10.9 Procedure A complete two-dimensional transthoracic echocardiogram was performed (2D, M-mode, Doppler and color flow Doppler). Left Ventricle The left ventricle is normal in size. There is mild concentric left ventricular hypertrophy. Left gilles tricular systolic function is mildly reduced. Ejection Fraction = 45-50%. E/A reversal. There is basal postero lateral wall mild hypokinesis. There is proximal mid posteriolateral wall mild hypokinesis. There are regiona l wall motion abnormalities as specified. Right Ventricle The right ventricle is normal size. The right ventricular systolic function is normal. Atria The left atrial size is normal. LA volume index is 20 ml/m2. Right atrial size is normal. Mitral Valve There is mild to moderate mitral annular calcification. There is trace to mild mitral regurgitation. Tricuspid Valve The tricuspid valve is normal in structure and function. There is Trace to mild tricuspid regurgitati on. Right ventricular systolic pressure is normal. Aortic Valve There is mild aortic valve thickening. Mild valvular aortic stenosis. The calculated aortic valve are a using the continuity equation is 1.2 cm2. Mild aortic regurgitation. Pulmonic Valve The pulmonic valve is not well visualized. Great Vessels The aortic root is normal size. Pericardium/Pleura There is no pericardial effusion. Interpretation Summary The left ventricle is normal in size. There is mild concentric left ventricular hypertrophy. Left ventricular systolic function is mildly reduced. There are regional wall motion abnormalities as specified. Ejection Fraction = 45-50%. E/A reversal The right ventricular systolic function is normal. The left atrial size is normal. Right atrial size is normal. There is mild to moderate mitral annular calcification. There is trace to mild mitral regurgitation. There is Trace to mild tricuspid regurgitation. Right ventricular systolic pressure is normal. There is mild aortic valve thickening. Mild valvular aortic stenosis. The calculated aortic valve area using the continuity equation is 1.2 cm2. Mild aortic regurgitation. There is no pericardial effusion. Erasmo Ibarra MD 12/29/2019 02:53 PM
--- NOTE | 2019-12-29 18:25 | EKG ---
Test Reason : Blood Pressure : / mmHG Vent. Rate : 063 BPM Atrial Rate : 063 BPM P-R Int : 180 ms QRS Dur : 090 ms QT Int : 436 ms P-R-T Axes : 063 -09 -58 degrees QTc Int : 446 ms NORMAL SINUS RHYTHM ABNORMAL ECG WHEN COMPARED WITH ECG OF 28-DEC-2019 00:54, PREMATURE ATRIAL COMPLEXES ARE NO LONGER PRESENT Confirmed by STEFFEN VALENZUELA MD ([id number]) on 12/29/2019 6:25:23 PM Referred By: Confirmed By:STEFFEN VALENZUELA MD
--- NOTE | 2019-12-29 21:47 | EKG ---
Test Reason : Blood Pressure : / mmHG Vent. Rate : 069 BPM Atrial Rate : 069 BPM P-R Int : 178 ms QRS Dur : 092 ms QT Int : 396 ms P-R-T Axes : 056 000 -34 degrees QTc Int : 424 ms SINUS RHYTHM WITH PREMATURE ATRIAL COMPLEXES LEFT VENTRICULAR HYPERTROPHY WITH REPOLARIZATION ABNORMALITY ABNORMAL ECG WHEN COMPARED WITH ECG OF 27-DEC-2019 20:44, PREMATURE ATRIAL COMPLEXES ARE NOW PRESENT T WAVE VARIATION Confirmed by NICOLAS SOL, STEFFEN ([id number]) on 12/29/2019 9:46:39 PM Referred By: Confirmed By:STEFFEN VALENZUELA MD
--- NOTE | 2019-12-29 21:48 | EKG ---
Test Reason : Blood Pressure : / mmHG Vent. Rate : 076 BPM Atrial Rate : 076 BPM P-R Int : 180 ms QRS Dur : 100 ms QT Int : 368 ms P-R-T Axes : 063 000 047 degrees QTc Int : 414 ms NORMAL SINUS RHYTHM LEFT VENTRICULAR HYPERTROPHY WITH REPOLARIZATION ABNORMALITY ABNORMAL ECG WHEN COMPARED WITH ECG OF 27-DEC-2019 20:44, NO SIGNIFICANT CHANGE WAS FOUND Confirmed by STEFFEN VALENZUELA MD ([id number]) on 12/29/2019 9:48:14 PM Referred By: Confirmed By:STEFFEN VALENZUELA MD
--- NOTE | 2019-12-29 21:49 | EKG ---
Test Reason : Blood Pressure : / mmHG Vent. Rate : 090 BPM Atrial Rate : 090 BPM P-R Int : 184 ms QRS Dur : 096 ms QT Int : 344 ms P-R-T Axes : 073 -01 047 degrees QTc Int : 420 ms NORMAL SINUS RHYTHM LEFT VENTRICULAR HYPERTROPHY WITH REPOLARIZATION ABNORMALITY ST ABNORMALITY, CONSIDER LATERAL ISCHEMIA ABNORMAL ECG WHEN COMPARED WITH ECG OF 24-NOV-2011 13:34, ST NOW DEPRESSED IN LATERAL LEADS Confirmed by NICOLAS SOL, STEFFEN ([id number]) on 12/29/2019 9:48:50 PM Referred By: Confirmed By:STEFFEN VALENZUELA MD
--- NOTE | 2020-01-06 15:45 | PN ---
Progress Note (short form) - Note Progress Note: LHC[facility]RHC:12[facility]29/2019[facility] 95% [facility] s/p 3.0x18 Igor ANKITA and 95% mid LPDA s/p 3.5x15 Igor ANKITA with mod-severe LV dysfunction LVEF 35-40% and normal LVEDP. [employer] deployed right [employer] access site, no complications. Seen in office 01/06/2020 in f/u with resolution of chest pain radiating to jaw, no groin hematoma, still with persistent JOHNS referable to COPD. Problem List - Problems (1) NSTEMI (non-ST elevated myocardial infarction) Code(s): I21.4 - NON-ST ELEVATION (NSTEMI) MYOCARDIAL INFARCTION (2) Coronary artery disease Code(s): I25.10 - ATHSCL HEART DISEASE OF [place] CORONARY ARTERY W/O ANG PCTRS Qualifiers: Coronary Disease-Associated Artery/Lesion type: [place] artery [place] vs. transplanted heart: [place] heart Associated angina: with unstable angina Qualified Code(s): I25.110 - Atherosclerotic heart disease of [place] coronary artery with unstable angina pectoris (3) COPD (chronic obstructive pulmonary disease) Code(s): J44.9 - CHRONIC OBSTRUCTIVE PULMONARY DISEASE, UNSPECIFIED Qualifiers: COPD type: unspecified COPD Qualified Code(s): J44.9 - Chronic obstructive pulmonary disease, unspecified (4) BPH (benign prostatic hyperplasia) Code(s): N40.0 - BENIGN PROSTATIC HYPERPLASIA WITHOUT LOWER URINRY TRACT SYMP Qualifiers: Lower urinary tract symptom presence: symptoms absent Qualified Code(s): N40.0 - Benign prostatic hyperplasia without lower urinary tract symptoms (5) Presence of drug-eluting stent in left circumflex coronary artery Code(s): Z95.5 - PRESENCE OF CORONARY ANGIOPLASTY IMPLANT AND GRAFT (6) Hyperlipemia Code(s): E78.5 - HYPERLIPIDEMIA, UNSPECIFIED Qualifiers: Hyperlipidemia type: pure hypercholesterolemia Qualified Code(s): E78.00 - Pure hypercholesterolemia, unspecified; E78.0 - Pure hypercholesterolemia
== END 2019-12-29 14:43 | disposition short-term general hospital (02) | DRG 281 ==
LOC: JER 18:46 → JERBED 21:04 → OBSVTOIN 12-28 00:25 → J4S 12-28 15:40
PROVIDERS: ADMIT Internal Medicine; ATTEND Nurse Practitioner Family
DX: I21.4 Non-ST elevation (NSTEMI) myocardial infarction (principal); J98.11 Atelectasis; J44.9 Chronic obstructive pulmonary disease, unspecified; N40.0 Benign prostatic hyperplasia without lower urinary tract symptoms; Z86.19 Personal history of other infectious and parasitic diseases; M48.061 Spinal stenosis, lumbar region without neurogenic claudication; I10 Essential (primary) hypertension; G62.9 Polyneuropathy, unspecified; Z87.891 Personal history of nicotine dependence; I25.10 Atherosclerotic heart disease of native coronary artery without angina pectoris; E78.5 Hyperlipidemia, unspecified; I65.21 Occlusion and stenosis of right carotid artery
CPT/HCPCS: 36415; 71045-TC-FY; 80053; 80061; 82550; 82553; 83036; 83690; 83721; 83735; 84443; 84484; 85025; 93005; 93010; 93306-TC; 93880-TC; 99285-25; G0378; U0003

== ENCOUNTER 2020-12-25 10:26 | Inpatient (IN) | payer OTHER, BC ==
[2020-12-25 10:41] VITALS: BMI 18.4
[2020-12-25 12:23] LABS: BASO % 0.5 % (0-2.0); CHLORIDE 104 mmol/L (98-107); HEMATOCRIT 21.9 % (35.4-49); LYMPH % 13.4 % (8-40); MCH 23.7 pg (25.7-33.7); MCHC 31.2 g/dl (32.0-35.9); MEAN CELL VOLUME 75.8 fl (80-96); MEAN PLT VOLUME 7.5 fl (7.5-11.1); MONO % 15.2 % (3.8-10.2); NEUT % 68.9 % (42.8-82.8); PLATELET COUNT 230 10^3/uL (134-434); RBC 2.89 M/mm3 (4.00-5.60); SODIUM 140 mmol/L (136-145); WHITE BLOOD COUNT 4.9 K/mm3 (4.0-10.0)
[2020-12-25] MEDS ORDERED: PANTOPRAZOLE SODIUM 40 MG VIAL IVPUSH ONE (12:24)
[2020-12-25 12:25] LABS: CALCIUM 8.5 mg/dL (8.5-10.1)
[2020-12-25 12:26] LABS: ALBUMIN 3.4 g/dl (3.4-5.0); ANION GAP 7 MMOL/L (8-16); CO2 29 mmol/L (21-32); GLUCOSE,RANDOM 107 mg/dL (74-106)
[2020-12-25 12:29] LABS: SGOT/AST 15 U/L (15-37); SGPT/ALT 21 U/L (13-61)
[2020-12-25 12:30] LABS: BILIRUBIN,TOTAL 0.4 mg/dL (0.2-1); TOT PROT 6.7 g/dl (6.4-8.2)
[2020-12-25 12:32] LABS: ALK PHOS 58 U/L (45-117)
[2020-12-25 12:33] LABS: LDH 202 U/L (87-246)
[2020-12-25 12:36] LABS: HEMOGLOBIN 6.8 GM/dL (11.7-16.9)
[2020-12-25] MEDS ORDERED: PANTOPRAZOLE SODIUM 40 MG VIAL ONE (12:47)
[2020-12-25] MEDS ORDERED: ALBUTEROL SO4 HFA INHALER IH PRN (14:30)
[2020-12-25] MEDS ORDERED: ACETAMINOPHEN 325 MG TABLET (FP) PO PRN (14:30)
[2020-12-25] MEDS ORDERED: PREGABALIN 50 MG CAPSULE PO ONE (14:30)
[2020-12-25 14:48] LABS: INR 1.28 (0.83-1.09); PROTHROMBIN TIME (PATIENT) 15.6 SEC (9.7-13.0)
[2020-12-25 14:51] LABS: ACTIVATED PTT 29.2 SECONDS (25.2-36.5)
[2020-12-25 15:33] LABS: BILIRUBIN,DIRECT 0.1 mg/dL (0.0-0.2)
[2020-12-25] MEDS: ATORVASTATIN CA 80 MG TABLET (FP) PO SCH (21:05)
[2020-12-25] MEDS: PANTOPRAZOLE SODIUM 40 MG VIAL IVPUSH SCH (21:05)
[2020-12-26 08:55] LABS: BASO % 0.4 % (0-2.0); EOS % 4.3 % (0-4.5); HEMATOCRIT 29.4 % (35.4-49); HEMOGLOBIN 9.7 GM/dL (11.7-16.9); LYMPH % 12.3 % (8-40); MCH 25.9 pg (25.7-33.7); MCHC 33.1 g/dl (32.0-35.9); MEAN CELL VOLUME 78.3 fl (80-96); MEAN PLT VOLUME 7.8 fl (7.5-11.1); MONO % 14.3 % (3.8-10.2); NEUT % 68.7 % (42.8-82.8); PLATELET COUNT 220 10^3/uL (134-434); RBC 3.76 M/mm3 (4.00-5.60); RDW 16.2 % (11.9-15.9); WHITE BLOOD COUNT 6.4 K/mm3 (4.0-10.0)
[2020-12-26 09:15] LABS: CALCIUM 8.4 mg/dL (8.5-10.1)
[2020-12-26 09:16] LABS: BLOOD UREA NITROGEN 12.4 mg/dL (7-18); MAGNESIUM 2.1 mg/dL (1.8-2.4)
[2020-12-26 09:19] LABS: CREATININE 0.7 mg/dL (0.55-1.3); PHOSPHOROUS 3.2 mg/dL (2.5-4.9)
[2020-12-26 09:20] LABS: BILIRUBIN,TOTAL 1.4 mg/dL (0.2-1)
[2020-12-26] MEDS: TAMSULOSIN HCL 0.4 MG CAP PO SCH (09:56)
[2020-12-26] MEDS: PREGABALIN 50 MG CAPSULE PO SCH (09:56)
[2020-12-26] MEDS: PANTOPRAZOLE SODIUM 40 MG VIAL IVPUSH SCH ×2 (09:56→21:37)
[2020-12-26] MEDS: UMECLIDINIUM/VILANTEROL (ANORO) 62.5/25 MCG INHALER IH SCH ×2 (10:48→11:35)
[2020-12-26] MEDS: ATORVASTATIN CA 80 MG TABLET (FP) PO SCH (21:37)
[2020-12-27 08:17] LABS: BASO % 0.5 % (0-2.0); EOS % 3.9 % (0-4.5); HEMOGLOBIN 9.9 GM/dL (11.7-16.9); LYMPH % 12.4 % (8-40); MCH 26.1 pg (25.7-33.7); MEAN PLT VOLUME 7.9 fl (7.5-11.1); MONO % 13.3 % (3.8-10.2); NEUT % 69.9 % (42.8-82.8); PLATELET COUNT 213 10^3/uL (134-434); RDW 16.8 % (11.9-15.9); WHITE BLOOD COUNT 7.3 K/mm3 (4.0-10.0)
[2020-12-27 08:45] LABS: BILIRUBIN,TOTAL 0.5 mg/dL (0.2-1); BLOOD UREA NITROGEN 13.2 mg/dL (7-18); MAGNESIUM 2.1 mg/dL (1.8-2.4)
[2020-12-27 08:47] LABS: PHOSPHOROUS 3.3 mg/dL (2.5-4.9)
[2020-12-27 08:48] LABS: CREATININE 0.7 mg/dL (0.55-1.3)
[2020-12-27 08:49] LABS: TOT PROT 5.9 g/dl (6.4-8.2)
[2020-12-27] MEDS: PREGABALIN 50 MG CAPSULE PO SCH (10:46)
[2020-12-27] MEDS: PANTOPRAZOLE SODIUM 40 MG VIAL IVPUSH SCH ×2 (10:47→21:19)
[2020-12-27] MEDS: UMECLIDINIUM/VILANTEROL (ANORO) 62.5/25 MCG INHALER IH SCH (10:47)
[2020-12-27] MEDS: TAMSULOSIN HCL 0.4 MG CAP PO SCH (10:47)
[2020-12-27] MEDS ORDERED: ACETAMINOPHEN 325 MG TABLET (FP) PO PRN (11:42)
[2020-12-27] MEDS ORDERED: ALBUTEROL SO4 HFA INHALER IH PRN (11:42)
[2020-12-27] MEDS ORDERED: IRON SUCROSE INJECTION 200 MG in SODIUM CHLORIDE 90 ML IVPB ONE (15:00)
[2020-12-27] MEDS: ATORVASTATIN CA 80 MG TABLET (FP) PO SCH (21:19)
[2020-12-28 07:39] LABS: BASO % 0.3 % (0-2.0); EOS % 2.5 % (0-4.5); HEMATOCRIT 32.4 % (35.4-49); HEMOGLOBIN 10.5 GM/dL (11.7-16.9); LYMPH % 11.5 % (8-40); MCH 25.7 pg (25.7-33.7); MCHC 32.5 g/dl (32.0-35.9); MEAN CELL VOLUME 79.2 fl (80-96); MEAN PLT VOLUME 7.8 fl (7.5-11.1); MONO % 12.1 % (3.8-10.2); NEUT % 73.6 % (42.8-82.8); PLATELET COUNT 230 10^3/uL (134-434); RDW 17.1 % (11.9-15.9); WHITE BLOOD COUNT 6.9 K/mm3 (4.0-10.0)
[2020-12-28 08:13] LABS: CALCIUM 8.4 mg/dL (8.5-10.1)
[2020-12-28 08:14] LABS: BLOOD UREA NITROGEN 9.7 mg/dL (7-18)
[2020-12-28 08:17] LABS: CREATININE 0.8 mg/dL (0.55-1.3)
[2020-12-28] MEDS: PREGABALIN 50 MG CAPSULE PO SCH (09:42)
[2020-12-28] MEDS: ASPIRIN 81 MG CHEWABLE TABLETS PO SCH (09:42)
[2020-12-28] MEDS: TAMSULOSIN HCL 0.4 MG CAP PO SCH (09:42)
[2020-12-28] MEDS: UMECLIDINIUM/VILANTEROL (ANORO) 62.5/25 MCG INHALER IH SCH (09:42)
[2020-12-28] MEDS: PANTOPRAZOLE SODIUM 40 MG VIAL IVPUSH SCH ×2 (09:42→21:03)
[2020-12-28] MEDS ORDERED: POLYETHYLENE GLYCOL (HEALTHYLAX) 3350 17 GM PACKET PO SCH (10:00)
[2020-12-28] MEDS: POLYETHYLENE GLYCOL (HEALTHYLAX) 3350 17 GM PACKET PO SCH ×2 (13:28→21:02)
[2020-12-28] MEDS ORDERED: PATIENT'S OWN MEDICATION (NON-FORMULARY) (Gabapentin [Neurontin] 600 MG Tablet) PO PRN (15:02)
[2020-12-28] MEDS: VALSARTAN 40 MG TABLET PO SCH (15:59)
[2020-12-28] MEDS ORDERED: IRON SUCROSE INJECTION 200 MG in SODIUM CHLORIDE 90 ML IVPB ONE (16:30)
[2020-12-28] MEDS: ATORVASTATIN CA 80 MG TABLET (FP) PO SCH (21:03)
[2020-12-29] MEDS: POLYETHYLENE GLYCOL (HEALTHYLAX) 3350 17 GM PACKET PO SCH ×3 (05:55→21:27)
[2020-12-29 07:06] LABS: BASO % 0.3 % (0-2.0); EOS % 2.2 % (0-4.5); HEMATOCRIT 30.9 % (35.4-49); HEMOGLOBIN 10.1 GM/dL (11.7-16.9); LYMPH % 8.6 % (8-40); MCH 25.9 pg (25.7-33.7); MCHC 32.6 g/dl (32.0-35.9); MEAN CELL VOLUME 79.7 fl (80-96); MEAN PLT VOLUME 7.7 fl (7.5-11.1); MONO % 8.4 % (3.8-10.2); NEUT % 80.5 % (42.8-82.8); PLATELET COUNT 234 10^3/uL (134-434); RBC 3.88 M/mm3 (4.00-5.60); RDW 17.4 % (11.9-15.9); WHITE BLOOD COUNT 9.4 K/mm3 (4.0-10.0)
[2020-12-29 07:18] LABS: ALBUMIN 3.2 g/dl (3.4-5.0); CALCIUM 8.2 mg/dL (8.5-10.1)
[2020-12-29 07:19] LABS: BLOOD UREA NITROGEN 11.9 mg/dL (7-18)
[2020-12-29 07:21] LABS: CREATININE 0.8 mg/dL (0.55-1.3)
[2020-12-29 07:23] LABS: BILIRUBIN,TOTAL 0.9 mg/dL (0.2-1); TOT PROT 6.3 g/dl (6.4-8.2)
[2020-12-29] MEDS: UMECLIDINIUM/VILANTEROL (ANORO) 62.5/25 MCG INHALER IH SCH (09:20)
[2020-12-29] MEDS: PREGABALIN 50 MG CAPSULE PO SCH (09:21)
[2020-12-29] MEDS: ASPIRIN 81 MG CHEWABLE TABLETS PO SCH (09:21)
[2020-12-29] MEDS: PANTOPRAZOLE SODIUM 40 MG VIAL IVPUSH SCH ×2 (09:21→21:28)
[2020-12-29] MEDS: VALSARTAN 40 MG TABLET PO SCH (09:21)
[2020-12-29] MEDS: TAMSULOSIN HCL 0.4 MG CAP PO SCH (09:21)
[2020-12-29] MEDS: ATORVASTATIN CA 80 MG TABLET (FP) PO SCH (21:28)
[2020-12-30] MEDS: POLYETHYLENE GLYCOL (HEALTHYLAX) 3350 17 GM PACKET PO SCH (06:23)
[2020-12-30 07:28] LABS: BASO % 0.3 % (0-2.0); EOS % 2.6 % (0-4.5); HEMATOCRIT 32.3 % (35.4-49); HEMOGLOBIN 10.6 GM/dL (11.7-16.9); LYMPH % 13.5 % (8-40); MCH 26.1 pg (25.7-33.7); MCHC 32.7 g/dl (32.0-35.9); MEAN CELL VOLUME 79.9 fl (80-96); MEAN PLT VOLUME 7.6 fl (7.5-11.1); MONO % 9.5 % (3.8-10.2); NEUT % 74.1 % (42.8-82.8); PLATELET COUNT 246 10^3/uL (134-434); RBC 4.05 M/mm3 (4.00-5.60); RDW 17.4 % (11.9-15.9); WHITE BLOOD COUNT 8.6 K/mm3 (4.0-10.0)
[2020-12-30 07:44] LABS: BLOOD UREA NITROGEN 11.7 mg/dL (7-18); CALCIUM 8.4 mg/dL (8.5-10.1)
[2020-12-30 07:48] LABS: CREATININE 0.8 mg/dL (0.55-1.3)
[2020-12-30] MEDS ORDERED: PEG 3350/NA SULF BICARB CL/KCL 4000 ML SOLN.RECON PO ONE (09:00)
[2020-12-30] MEDS ORDERED: PT OWN MED DRAWER 7, Y5N ONE (09:09)
[2020-12-30] MEDS: PANTOPRAZOLE SODIUM 40 MG VIAL IVPUSH SCH ×2 (09:59→21:42)
[2020-12-30] MEDS: VALSARTAN 40 MG TABLET PO SCH (09:59)
[2020-12-30] MEDS: TAMSULOSIN HCL 0.4 MG CAP PO SCH (09:59)
[2020-12-30] MEDS: ASPIRIN 81 MG CHEWABLE TABLETS PO SCH (09:59)
[2020-12-30] MEDS: PREGABALIN 50 MG CAPSULE PO SCH (09:59)
[2020-12-30] MEDS: UMECLIDINIUM/VILANTEROL (ANORO) 62.5/25 MCG INHALER IH SCH (10:00)
[2020-12-30] MEDS ORDERED: BISACODYL 5 MG TABLET.DR (FP) PO ONE (20:00)
[2020-12-30] MEDS: ATORVASTATIN CA 80 MG TABLET (FP) PO SCH (21:42)
[2020-12-31 07:55] LABS: BASO % 0.5 % (0-2.0); EOS % 3.1 % (0-4.5); HEMATOCRIT 31.2 % (35.4-49); HEMOGLOBIN 10.1 GM/dL (11.7-16.9); LYMPH % 12.7 % (8-40); MCH 25.8 pg (25.7-33.7); MCHC 32.5 g/dl (32.0-35.9); MEAN CELL VOLUME 79.5 fl (80-96); MEAN PLT VOLUME 7.6 fl (7.5-11.1); MONO % 10.5 % (3.8-10.2); NEUT % 73.2 % (42.8-82.8); PLATELET COUNT 215 10^3/uL (134-434); RBC 3.92 M/mm3 (4.00-5.60); RDW 17.9 % (11.9-15.9); WHITE BLOOD COUNT 6.8 K/mm3 (4.0-10.0)
[2020-12-31 07:58] LABS: INR 1.32 (0.83-1.09); PROTHROMBIN TIME (PATIENT) 16.1 SEC (9.7-13.0)
[2020-12-31 08:22] LABS: BLOOD UREA NITROGEN 7.8 mg/dL (7-18); CALCIUM 8.3 mg/dL (8.5-10.1)
[2020-12-31 08:23] LABS: ALBUMIN 3.1 g/dl (3.4-5.0)
[2020-12-31 08:25] LABS: CREATININE 0.8 mg/dL (0.55-1.3)
[2020-12-31 09:34] LABS: BILIRUBIN,TOTAL 0.5 mg/dL (0.2-1); TOT PROT 7.1 g/dl (6.4-8.2)
[2020-12-31] MEDS: PANTOPRAZOLE SODIUM 40 MG VIAL IVPUSH SCH (10:15)
[2020-12-31] MEDS: PREGABALIN 50 MG CAPSULE PO SCH (10:32)
[2020-12-31] MEDS: ASPIRIN 81 MG CHEWABLE TABLETS PO SCH (10:32)
[2020-12-31] MEDS: VALSARTAN 40 MG TABLET PO SCH (10:32)
[2020-12-31] MEDS: TAMSULOSIN HCL 0.4 MG CAP PO SCH (10:32)
[2020-12-31] MEDS: UMECLIDINIUM/VILANTEROL (ANORO) 62.5/25 MCG INHALER IH SCH (10:32)
[2020-12-31] MEDS: KCL 10 MEQ IVPB 10 MEQ/100 ML INFUS.BAG IVPB SCH ×2 (11:03→16:30)
[2020-12-31] MEDS ORDERED: TETRACAINE/BENZOCAINE/BUTAMBEN 20 GM SPR TP ONE (12:51)
[2020-12-31 13:53] VITALS: TEMP 98
[2020-12-31 14:22] VITALS: BP 140/76; PULSE 84
== END 2020-12-31 18:06 | disposition home or self-care (01) | DRG 377 ==
LOC: JER 10:26 → JERBED 13:40 → OBSVTOIN 14:23 → J6S 16:49 → J4W 12-26 21:01
PROVIDERS: ADMIT Student in an Organized Health Care Education/Training Program; ATTEND Internal Medicine
PROC: 30233N1 Transfusion of Nonautologous Red Blood Cells into Peripheral Vein, Percutaneous Approach (ICD-10-PCS; principal; 2020-12-25)
PROC: 0DBL8ZX Excision of Transverse Colon, Via Natural or Artificial Opening Endoscopic, Diagnostic (ICD-10-PCS; 2020-12-25)
PROC: 0DB98ZX Excision of Duodenum, Via Natural or Artificial Opening Endoscopic, Diagnostic (ICD-10-PCS; 2020-12-25)
PROC: 0DB68ZX Excision of Stomach, Via Natural or Artificial Opening Endoscopic, Diagnostic (ICD-10-PCS; 2020-12-25)
PROC: 0DB78ZX Excision of Stomach, Pylorus, Via Natural or Artificial Opening Endoscopic, Diagnostic (ICD-10-PCS; 2020-12-31)
DX: K55.21 Angiodysplasia of colon with hemorrhage (principal); E43 Unspecified severe protein-calorie malnutrition; R64 Cachexia; K31.1 Adult hypertrophic pyloric stenosis; N17.9 Acute kidney failure, unspecified; Z68.1 Body mass index [BMI] 19.9 or less, adult; I25.10 Atherosclerotic heart disease of native coronary artery without angina pectoris; D50.0 Iron deficiency anemia secondary to blood loss (chronic); K29.50 Unspecified chronic gastritis without bleeding; R00.1 Bradycardia, unspecified; K59.00 Constipation, unspecified; J44.9 Chronic obstructive pulmonary disease, unspecified; R53.1 Weakness; I73.9 Peripheral vascular disease, unspecified; I95.9 Hypotension, unspecified; I65.21 Occlusion and stenosis of right carotid artery; K31.84 Gastroparesis; G62.9 Polyneuropathy, unspecified; R53.83 Other fatigue; N40.0 Benign prostatic hyperplasia without lower urinary tract symptoms; Z95.5 Presence of coronary angioplasty implant and graft; I25.2 Old myocardial infarction; K62.4 Stenosis of anus and rectum; D12.3 Benign neoplasm of transverse colon; K57.30 Diverticulosis of large intestine without perforation or abscess without bleeding
CPT/HCPCS: 36415; 36430; 36511; 71045-TC-FY; 80048; 80053; 82248; 82272; 82550; 82553; 82607; 82728; 82746; 83010; 83540; 83550; 83615; 83735; 84100; 84443; 84484; 85025; 85045; 85610; 85730; 86850; 86900; 86901; 86922; 93005; 93010; 99285-25; C9803; G0378; J1756; P9016; P9038; P9058; U0003; U0005

== ENCOUNTER 2021-10-21 10:52 | Observation (INO) | payer OTHER, BC ==
[2021-10-21 12:32] LABS: BASO % 0.3 % (0-2.0); EOS % 2.7 % (0-4.5); HEMATOCRIT 22.9 % (35.4-49); LYMPH % 25.6 % (8-40); MCH 21.1 pg (25.7-33.7); MCHC 29.3 g/dl (32.0-35.9); MEAN PLT VOLUME 8.1 fl (7.5-11.1); MONO % 13.5 % (3.8-10.2); NEUT % 57.9 % (42.8-82.8); PLATELET COUNT 183 10^3/uL (134-434); RBC 3.17 M/mm3 (4.00-5.60); RDW 18.7 % (11.9-15.9); WHITE BLOOD COUNT 4.8 K/mm3 (4.0-10.0)
[2021-10-21 12:37] LABS: HEMOGLOBIN 6.7 GM/dL (11.7-16.9)
[2021-10-21 12:40] LABS: INR 1.52 (0.83-1.09); PROTHROMBIN TIME (PATIENT) 17.5 SEC (9.7-13.0)
[2021-10-21 12:43] LABS: ACTIVATED PTT 29.3 SECONDS (25.2-36.5)
[2021-10-21 13:06] LABS: ANISOCYTOSIS 3+; MACROCYTOSIS 0
[2021-10-21 13:22] LABS: CALCIUM 8.3 mg/dL (8.5-10.1)
[2021-10-21 13:23] LABS: BLOOD UREA NITROGEN 12.6 mg/dL (7-18)
[2021-10-21 13:27] LABS: BILIRUBIN,TOTAL 0.4 mg/dL (0.2-1); TOT PROT 6.4 g/dl (6.4-8.2)
[2021-10-21 15:00] LABS: N-TERMINAL BNP 413.4 pg/ml (5-450)
[2021-10-21] MEDS ORDERED: ALBUTEROL SO4 HFA INHALER IH PRN (15:57)
[2021-10-21] MEDS ORDERED: ACETAMINOPHEN 325 MG TABLET (FP) PO PRN (16:16)
[2021-10-21 23:20] LABS: BASO % 0.6 % (0-2.0); EOS % 2.9 % (0-4.5); HEMATOCRIT 27.8 % (35.4-49); HEMOGLOBIN 8.7 GM/dL (11.7-16.9); LYMPH % 24.1 % (8-40); MCH 22.5 pg (25.7-33.7); MCHC 31.1 g/dl (32.0-35.9); MEAN CELL VOLUME 72.4 fl (80-96); MONO % 10.1 % (3.8-10.2); NEUT % 62.3 % (42.8-82.8); PLATELET COUNT 195 10^3/uL (134-434); RBC 3.84 M/mm3 (4.00-5.60); RDW 19.4 % (11.9-15.9); WHITE BLOOD COUNT 6.8 K/mm3 (4.0-10.0)
[2021-10-22] MEDS: TAMSULOSIN HCL 0.4 MG CAP PO SCH (10:12)
[2021-10-22] MEDS: VALSARTAN 40 MG TABLET PO SCH (10:12)
[2021-10-22 13:07] LABS: HEMATOCRIT 26.7 % (35.4-49); HEMOGLOBIN 8.2 GM/dL (11.7-16.9); MCH 22.3 pg (25.7-33.7); MCHC 30.6 g/dl (32.0-35.9); MEAN CELL VOLUME 72.8 fl (80-96); MEAN PLT VOLUME 8.3 fl (7.5-11.1); PLATELET COUNT 176 10^3/uL (134-434); RBC 3.67 M/mm3 (4.00-5.60); RDW 19.2 % (11.9-15.9); WHITE BLOOD COUNT 8.1 K/mm3 (4.0-10.0)
[2021-10-22] MEDS: UMECLIDINIUM/VILANTEROL (ANORO) 62.5/25 MCG INHALER IH SCH (13:09)
[2021-10-22 13:43] LABS: BLOOD UREA NITROGEN 11.3 mg/dL (7-18); CALCIUM 8.5 mg/dL (8.5-10.1)
[2021-10-22 13:46] LABS: CREATININE 0.8 mg/dL (0.55-1.3)
[2021-10-22] MEDS: PANTOPRAZOLE 40 MG TABLET PO SCH (18:09)
[2021-10-22] MEDS ORDERED: ATORVASTATIN CA 80 MG TABLET (FP) PO SCH (22:00)
[2021-10-23] MEDS: VALSARTAN 40 MG TABLET PO SCH (09:41)
[2021-10-23] MEDS: TAMSULOSIN HCL 0.4 MG CAP PO SCH (09:41)
[2021-10-23] MEDS: PANTOPRAZOLE 40 MG TABLET PO SCH (09:41)
[2021-10-23] MEDS: UMECLIDINIUM/VILANTEROL (ANORO) 62.5/25 MCG INHALER IH SCH (09:42)
[2021-10-23 10:02] LABS: BASO % 0.4 % (0-2.0); EOS % 1.9 % (0-4.5); HEMATOCRIT 28.5 % (35.4-49); HEMOGLOBIN 8.8 GM/dL (11.7-16.9); LYMPH % 20.7 % (8-40); MCH 22.3 pg (25.7-33.7); MCHC 30.9 g/dl (32.0-35.9); MEAN CELL VOLUME 72.2 fl (80-96); MEAN PLT VOLUME 8.2 fl (7.5-11.1); MONO % 8.4 % (3.8-10.2); NEUT % 68.6 % (42.8-82.8); PLATELET COUNT 192 10^3/uL (134-434); RBC 3.95 M/mm3 (4.00-5.60); RDW 20.1 % (11.9-15.9); WHITE BLOOD COUNT 7.4 K/mm3 (4.0-10.0)
[2021-10-23 10:23] LABS: BLOOD UREA NITROGEN 12.4 mg/dL (7-18); CALCIUM 8.8 mg/dL (8.5-10.1)
[2021-10-23 10:24] LABS: ALBUMIN 3.4 g/dl (3.4-5.0)
[2021-10-23 10:25] LABS: CREATININE 0.9 mg/dL (0.55-1.3)
[2021-10-23 10:27] LABS: BILIRUBIN,TOTAL 0.8 mg/dL (0.2-1); TOT PROT 7.2 g/dl (6.4-8.2)
[2021-10-23 13:01] VITALS: BMI 19.7
[2021-10-23] MEDS ORDERED: IRON SUCROSE INJECTION 300 MG in SODIUM CHLORIDE 235 ML IVPB ONE (13:30)
[2021-10-23 15:51] VITALS: BP 150/78; PULSE 81; TEMP 97.9
[2021-10-24] MEDS ORDERED: MULTIVITAMINS (DAILY MVI) TABLET (FP) PO SCH (10:00)
== END 2021-10-22 19:00 | disposition home or self-care (01) ==
LOC: JER 10:52 → JERBED 14:53 → J5S 21:56
PROVIDERS: ADMIT Internal Medicine; ATTEND Internal Medicine
PROC: 3E033GC Introduction of Other Therapeutic Substance into Peripheral Vein, Percutaneous Approach (ICD-10-PCS; principal; 2021-10-21)
PROC: 30233N1 Transfusion of Nonautologous Red Blood Cells into Peripheral Vein, Percutaneous Approach (ICD-10-PCS; 2021-10-21)
DX: I25.10 Atherosclerotic heart disease of native coronary artery without angina pectoris (principal); I11.9 Hypertensive heart disease without heart failure; D50.9 Iron deficiency anemia, unspecified; Z95.5 Presence of coronary angioplasty implant and graft; R53.1 Weakness; Z89.421 Acquired absence of other right toe(s); R19.5 Other fecal abnormalities; K29.70 Gastritis, unspecified, without bleeding; K57.90 Diverticulosis of intestine, part unspecified, without perforation or abscess without bleeding; K55.20 Angiodysplasia of colon without hemorrhage; K27.9 Peptic ulcer, site unspecified, unspecified as acute or chronic, without hemorrhage or perforation; K31.84 Gastroparesis; R63.0 Anorexia
CPT/HCPCS: 36415; 36430; 71045-TC-FY; 80048; 80053; 82728; 83540; 83550; 83735; 83880; 84484; 85025; 85027; 85610; 85730; 86850; 86900; 86901; 86922; 93005; 93010; 96365; 99283-25; C9803-CS; G0378; J1756; P9058; U0003; U0005